=== PATIENT | female | born 1990 | race Caucasian/White ===

== ENCOUNTER 2016-11-17 10:13 | Emergency (ER) | payer BC ==
[2016-11-17] MEDS ORDERED: Ondansetron ODT TAB* 4 MG PO ONE (10:41)
[2016-11-17] MEDS ORDERED: Acetaminophen TAB* 325 MG PO ONE (10:43)
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
[2016-11-17 12:29] VITALS: BP 119/73
== END 2016-11-17 12:33 | disposition home or self-care (01) ==
LOC: ED 10:13
DX: S06.0X9A Concussion with loss of consciousness of unspecified duration, initial encounter (principal); W03.XXXA Other fall on same level due to collision with another person, initial encounter; Y93.64 Activity, baseball; Y92.9 Unspecified place or not applicable
CPT/HCPCS: 70450; 99283; A9270-GY

== ENCOUNTER 2017-06-13 03:31 | Emergency (ER) | payer SELFPAY ==
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
[2017-06-13 04:59] VITALS: BP 0/0
== END 2017-06-13 04:55 | disposition home or self-care (01) ==
LOC: ED 03:31
DX: Z77.21 Contact with and (suspected) exposure to potentially hazardous body fluids (principal)
CPT/HCPCS: 99281